=== PATIENT | female | born 1970 | race Hispanic/Latino ===

== ENCOUNTER 2025-04-04 20:19 | Inpatient (IN) | payer BC ==
[~2025-04-04] VITALS: Ht 149.9 cm; Wt 48.6 kg
[2025-04-04 20:41] LABS: IMMATURE GRANULOCYTE ABSOLUTE 0.08 K/uL (0-1); NUCLEATED RED BLOOD CELLS 0.0 % (0.0-0.19); PLATELET COUNT (AUTO) 369 K/uL (130-400); RED BLOOD CELL COUNT(AUTO) 4.22 MIL/uL (4.00-5.50); RED CELL DISTRIBUTION WIDTH 12.3 % (11.0-15.5); WHITE BLOOD COUNT (AUTO) 21.5 K/uL (4.8-10.8)
[2025-04-04] MEDS: 0.9%NACL 1000ML 1,000 ML IV SCH (20:43)
[2025-04-04] MEDS: DICYCLOMINE HCL 20 MG TAB PO ONE (20:43)
--- NOTE | 2025-04-04 20:50 | ERN ---
General Chief Complaint: Abdominal Pain Stated Complaint: ABDOMINAL PAIN Time Seen by MD: 20:28 History of Present Illness Initial Comments 54-year-old female here for evaluation of abdominal pain, nausea vomiting. States that she is originally from [place] however is here for business. States that she was in her normal state of health two days ago however developed nausea and vomiting yesterday. And progress to worsening abdominal pain today that she decided to come the emergency room for evaluation. Denies any dysuria. Allergies: Coded Allergies: prednisone (Unverified Allergy, Unknown, 04/04/25) Past Medical History Past Medical History: Diabetes-Type II Past Surgical History: None Gastrointestinal/Abdominal: (+) nausea, (+) vomiting, (+) abdominal pain Physical Exam General Appearance: (+) apparent distress (Secondary to abdominal pain. Mild) Orientation: (+) alert, (+) oriented x 3 Head/Face Trauma: No Eye: bilateral eye normal inspection, bilateral eye PERRL, bilateral eye EOMI Ear, Nose, Throat: (+) hearing grossly normal, (+) normal ENT inspection, (+) moist mucous membraine Neck: (+) normal inspection Respiratory: (+) chest non-tender, (+) lungs clear Heart: (+) regular; (-) murmur Gastrointestinal: (+) soft, (+) tender (The around) Results Laboratory and Microbiology Lab and Micro Result Laboratory Tests Test 04/04/25 20:35 White Blood Count 21.5 K/uL (4.8-10.8) H Red Blood Count 4.22 MIL/uL (4.00-5.50) Hemoglobin 13.3 g/dL (12.0-16.0) Hematocrit 38.3 % (36-48) Mean Corpuscular Volume 90.8 fL (79-99) Mean Corpuscular Hemoglobin 31.5 pg (27.0-33.0) Mean Corpuscular Hemoglobin Concent 34.7 g/dL (32.0-36.0) Red Cell Distribution Width 12.3 % (11.0-15.5) Platelet Count 369 K/uL (130-400) Mean Platelet Volume 9.3 fL (7.5-10.5) Immature Granulocyte % (Auto) 0.4 % (0-1) Neutrophils (%) (Auto) 85.4 % (40.0-77.0) H Lymphocytes (%) (Auto) 9.1 % (21.0-51.0) L Monocytes (%) (Auto) 4.5 % (3.0-13.0) Eosinophils (%) (Auto) 0.2 % (0.0-8.0) Basophils (%) (Auto) 0.4 % (0.0-5.0) Neutrophils # (Auto) 18.4 K/uL (1.8-7.7) H Lymphocytes # (Auto) 2.0 K/uL (1.0-4.8) Monocytes # (Auto) 1.0 K/uL (0.1-1.0) Eosinophils # (Auto) 0.04 K/uL (0.00-0.70) Basophils # (Auto) 0.08 K/uL (0.00-0.20) Absolute Immature Granulocyte (auto 0.08 K/uL (0-1) Nucleated Red Blood Cells 0.0 % (0.0-0.19) White Cell Morphology Comment See comments Sodium Level 135 mmol/L (136-145) L Potassium Level 3.6 mmol/L (3.5-5.1) Chloride Level 101 mmol/L (101-111) Carbon Dioxide Level 22 mmol/L (21-32) Blood Urea Nitrogen 13 mg/dL (7-18) Creatinine 0.8 mg/dL (0.5-1.0) Glomerular Filtration Rate Calc 89 mL/min (>90) Random Glucose 171 mg/dL (70-105) H Total Calcium 8.7 mg/dL (8.5-10.1) Total Bilirubin 0.6 mg/dL (0.2-1.0) Direct Bilirubin 0.1 mg/dL (0.0-0.3) Aspartate Amino Transf (AST/SGOT) 18 U/L (10-37) Alanine Aminotransferase (ALT/SGPT) 22 U/L (12-78) Alkaline Phosphatase 66 U/L (50-136) Total Protein 7.2 g/dL (6.0-8.3) Albumin 3.8 g/dL (3.5-5.0) Lipase 32 U/L (16-77) Serum Test, Qualitative NEGATIVE (NEGATIVE) EKG/XRAY/US/CT/MRI CT Scan Comment EXAM: CT Abdomen and Pelvis with IV contrast CLINICAL HISTORY: The pain. Right lower and left lower quadrant pain. TECHNIQUE: Axial computed tomography images of the abdomen and pelvis with intravenous contrast. CONTRAST: with intravenous contrast, 100 ml Omnipaque 350 COMPARISON: None provided. FINDINGS: LUNG BASES: The lung bases appear clear. No pleural effusions are seen. LIVER: 0.7 cm and 0.5 cm hypodense lesions in segment IV, likely cysts. GALLBLADDER AND BILE DUCTS: The gallbladder appears within normal limits. No radioopaque gallstones are seen. No biliary ductal dilatation is evident. PANCREAS: Unremarkable. SPLEEN: Unremarkable. ADRENAL GLANDS: Unremarkable. KIDNEYS, URETERS, AND BLADDER: 0.5 cm cyst in the upper polar region of the left kidney. The kidneys appear within normal limits. There is no hydronephrosis or hydroureter. No urinary calculi are seen. STOMACH AND BOWEL: Unremarkable appearance of the stomach and bowel. No evidence of bowel obstruction. No evidence suggesting enteritis or colitis. APPENDIX: The appendix is distended with a maximum diameter measuring up to 1.4 cm. Mild appendiceal wall thickening with moderate periappendiceal inflammatory changes. No collection. No perforation. PERITONEUM: No free fluid. No free air. LYMPH NODES: No lymphadenopathy is evident. REPRODUCTIVE: The uterus is surgically absent. No adnexal lesion. VASCULATURE: Atherosclerotic wall calcifications in the abdominal aorta. No evidence of abdominal aortic aneurysm. BONES: No aggressive appearing osseous lesion. No acute osseous pathology evident. IMPRESSION: Acute appendicitis. No appendicolith, perforation or collection. MDM 54-year-old female with acute abdomen. CT scan shows appendicitis. We will start on IV antibiotics, fluids and admit to hospitalist. General surgeon made aware. We will admit to hospitalist ED Course Orders Procedure Category Date Status Time Vital Signs Per CPOE 04/04/25 Transmitted Routine 20:25 Saline Lock Iv CPOE 04/04/25 Transmitted 20:25 Cbc With Differential LAB 04/04/25 Complete 20:25 Lipase LAB 04/04/25 Complete 20: Urinalysis Profile LAB 04/04/25 Logged 20:25 Basic Metabolic Panel LAB 04/04/25 Complete 20:25 Dicyclomine Hcl PHA 04/04/25 Complete (Bentyl 20mg Tab) 21:00 0.9%Nacl 1000ml (Ns PHA 04/04/25 In Process 1000ml) 21:00 Ondansetron 4mg Inj PHA 04/04/25 Complete (Zofran 4mg Inj) 21:00 Testing, LAB 04/04/25 Complete Serum Hcg 20:39 Hepatic Function Panel LAB 04/04/25 Complete 20:35 Ct Abdomen/Pelvis CT 04/04/25 Resulted W/Contrast 21:04 Morphine 2mg Syg PHA 04/04/25 Complete (Morphine 2mg Syg) 21:30 Iohexol (Omnipaque) PHA 04/04/25 Complete 21:15 Zosyn 3.375gm+Ns 50ml PHA 04/04/25 Verified (Zosyn 3.375gm+Ns 22:30 Current Medications Medications (Trade) Dose Ordered Sig/Ann Marie Route PRN Reason Start Time Stop Time Status Last Admin Dose Admin Dicyclomine HCl (Bentyl 20mg Tab) 20 mg ONCE ONCE PO 04/04/25 21:00 04/04/25 21:01 DC 04/04/25 20:43 Iohexol (Omnipaque) 75 ml STK-MED ONCE IV 04/04/25 21:15 04/04/25 21:15 DC Morphine Sulfate (morPHINE 2MG SYG) 2 mg ONCE ONCE IVP 04/04/25 21:30 04/04/25 21:59 DC Ondansetron HCl (zoFRAN 4MG INJ) 4 mg ONCE ONCE IVP 04/04/25 21:00 04/04/25 21:01 DC 04/04/25 20:43 Sodium Chloride 1,000 ml @ 0 mls/hr Q0M IV 04/04/25 21:00 05/04/25 20:59 04/04/25 20:43 Vital Signs Date Time Temp Pulse Resp B/P (MAP) Pulse Ox O2 Delivery O2 Flow Rate FiO2 04/04/25 20:28 97.9 79 20 160/97 100 Room Air* 0 21 04/04/25 20:20 98.1 84 16 151/81 100 Room Air 0 DX & DISP Disposition: Inpatient Decision to Admit Date: Apr 04, 2025 Decision to Admit Time: 22:07 Departure Impression: Primary Impression: Acute appendicitis Condition: Stable CHAIM SERNA MD Apr 04, 2025 20:50
[2025-04-04 20:57] LABS: CREATININE 0.8 mg/dL (0.5-1.0); GLOMERULAR FILTR. RATE CALC 89.0 mL/min (>90); GLUCOSE,RANDOM 171.0 mg/dL (70-105); SODIUM SERUM 135.0 mmol/L (136-145); UREA NITROGEN, BLOOD 13.0 mg/dL (7-18)
[2025-04-04 21:00] LABS: ASPARTATE AMINOTRANSFERASE 18.0 U/L (10-37); TOTAL PROTEIN, SERUM 7.2 g/dL (6.0-8.3)
[2025-04-04] MEDS ORDERED: IOHEXOL-350 75 ML VIAL IV ONE (21:15)
--- NOTE | 2025-04-04 21:56 | HMCIMG ---
EXAM: CT Abdomen and Pelvis with IV contrast CLINICAL HISTORY: The pain. Right lower and left lower quadrant pain. TECHNIQUE: Axial computed tomography images of the abdomen and pelvis with intravenous contrast. CONTRAST: with intravenous contrast, 100 ml Omnipaque 350 COMPARISON: None provided. FINDINGS: LUNG BASES: The lung bases appear clear. No pleural effusions are seen. LIVER: 0.7 cm and 0.5 cm hypodense lesions in segment IV, likely cysts. GALLBLADDER AND BILE DUCTS: The gallbladder appears within normal limits. No radioopaque gallstones are seen. No biliary ductal dilatation is evident. PANCREAS: Unremarkable. SPLEEN: Unremarkable. ADRENAL GLANDS: Unremarkable. KIDNEYS, URETERS, AND BLADDER: 0.5 cm cyst in the upper polar region of the left kidney. The kidneys appear within normal limits. There is no hydronephrosis or hydroureter. No urinary calculi are seen. STOMACH AND BOWEL: Unremarkable appearance of the stomach and bowel. No evidence of bowel obstruction. No evidence suggesting enteritis or colitis. APPENDIX: The appendix is distended with a maximum diameter measuring up to 1.4 cm. Mild appendiceal wall thickening with moderate periappendiceal inflammatory changes. No collection. No perforation. PERITONEUM: No free fluid. No free air. LYMPH NODES: No lymphadenopathy is evident. REPRODUCTIVE: The uterus is surgically absent. No adnexal lesion. VASCULATURE: Atherosclerotic wall calcifications in the abdominal aorta. No evidence of abdominal aortic aneurysm. BONES: No aggressive appearing osseous lesion. No acute osseous pathology evident. IMPRESSION: Acute appendicitis. No appendicolith, perforation or collection. /[place]
--- NOTE | 2025-04-04 22:32 | HP ---
[facility] HISTORY AND PHYSICAL Date of Service: Apr 04, 2025 Time of Service: 22:31 PCP: Self-referral HISTORY OF PRESENT ILLNESS: This is a 54-year-old female from [place] with past medical history of diabetes who presents to the ED for complaints of abdominal pain, nausea and vomiting.Patient states she started having nausea for the past 2 days and today she vomited 2 x and developed diffuse abdominal pain which has localized to right lower quadrant so she decided to come to be evaluated.Patient states she has similar problem 2 years ago and was told it was resolved. Seen and examined patient in the ED ,awake,alert and coherent,appears uncomfortable c/o abdominal pain 5/10 pain level.Patient denies fever,chills,dysuria,chest pain,palpitation and shortness of breath. Latest vital signs temperature 99, heart rate 76, blood pressure 126/90 saturation 100% on room air. Labs: WBC 21 with negative left shift of neutrophils 85. Sodium 135, glucose 171 serum test negative. Urinalysis is unremarkable. CT abdomen and pelvis with contrast result revealed acute appendicitis. No appendicolith perforation or collection. While in the ER patient received Bentyl 20 mg p.o., 1 L NS bolus, Zofran 4 mg IV, morphine 2 mg IV and Zosyn IV. General surgeon monogram technician was consulted per ER MD's report we will admit patient for further medical management. REVIEW OF SYSTEMS CONSTITUTIONAL: Denies fevers, chills, or night sweats. No unintentional weight loss reported. NEUROLOGICAL: Denies headache, amaurosis fugax, motor weakness, sensory deficit, vertigo/spinning sensation, gait abnormalities, or tremors. ENT: No hearing loss, otalgia, otorrhea, rhinitis, rhinorrhea, hoarseness, or sore throat. CARDIOVASCULAR: Denies any exertional angina, dyspnea on exertion, orthopnea, paroxysmal nocturnal dyspnea, palpitations, life-threatening arrhythmias, claudication. PULMONARY: Denies any shortness of breath, cough, phlegm/sputum, hemoptysis, pleuritic chest pain. SLEEP: Denies morning headaches, daytime somnolence or napping. Denies difficulty falling asleep, staying asleep, waking from sleep. Denies knowledge of snoring. GASTROINTESTINAL: Right lower quadrant abdominal pain, nausea and vomiting Denies any type of dysphagia to either liquids or solids. Denies pyrosis, early satiety, diarrhea, constipation, or changes in stool consistency or caliber. Denies coffee-ground emesis, hematemesis, hematochezia, or melanotic stools. GENITOURINARY: Denies frequency, urgency, nocturia, hematuria or incontinence (Storage/Irritative symptoms.) Low urinary stream, straining to void, urinary intermittency or hesitancy, splitting of the voiding stream, terminal dribbling. ENDOCRINOLOGIC: Denies polyuria, polydipsia, polyphagia or heat/cold intolerances. HEMATOLOGIC: Denies thrombophilia/previous clots, or coagulopathy/bleeding disorders. ONCOLOGIC: Denies personal history of malignancy. DERMATOLOGIC: Denies rashes or pruritus. PSYCHIATRIC: Denies any suicidal or homicidal ideation. Denies hallucinations. PAST MEDICAL HISTORY: [ Diabetes, ] PAST SURGICAL HISTORY: [ Hysterectomy ] PAST SOCIAL HISTORY: [ Patient is from [place]. Patient denies alcohol tobacco and recreational drug use] FAMILY HISTORY: [ Noncontributory ] Coded Allergies: prednisone (Unverified Allergy, Unknown, 04/04/25) PHYSICAL EXAM GENERAL APPEARANCE: The patient is awake, alert, and oriented, in no acute cardiopulmonary distress. NEUROLOGICAL: Cranial nerves II-XII grossly intact. Motor is 5/5 in bilateral upper and lower extremities proximal to distal. No sensory deficits. HEENT: Face is symmetric. Pupils are equal and reactive. Extraocular movements are intact. NECK: Supple. No JVD. No thyromegaly. No submental, submandibular, pre- /postauricular, occipital or supraclavicular lymphadenopathy. CHEST: Normal chest expansion. No Telemetry. LUNGS: Absence of any rales, rhonchi or any wheezing. CARDIOVASCULAR: Regular. S1 and S2 normal. No appreciable rubs, murmurs or gallops. ABDOMEN: Positive rebound tenderness around right lower quadrant palpation Soft and nondistended. There is no voluntary guarding, or rigidity. : Deferred. No Kline. EXTREMITIES: Non-edematous and not cyanotic. No clubbing. Good capillary refill. SKIN: No skin breakdown. Vital Sign (Last 24 Hours) 04/04/25 20:28 Temp 97.9 Pulse 79 Resp 20 B/P (MAP) 160/97 Pulse Ox 100 O2 Delivery Room Air* O2 Flow Rate 0 FiO2 21 LABS: Laboratory: Test 04/04/25 20:35 Range/Units White Blood Count 21.5 H 4.8-10.8 K/uL Red Blood Count 4.22 4.00-5.50 MIL/uL Hemoglobin 13.3 12.0-16.0 g/dL Hematocrit 38.3 36-48 % Mean Corpuscular Volume 90.8 79-99 fL Mean Corpuscular Hemoglobin 31.5 27.0-33.0 pg Mean Corpuscular Hemoglobin Concent 34.7 32.0-36.0 g/dL Red Cell Distribution Width 12.3 11.0-15.5 % Platelet Count 369 130-400 K/uL Mean Platelet Volume 9.3 7.5-10.5 fL Immature Granulocyte % (Auto) 0.4 0-1 % Neutrophils (%) (Auto) 85.4 H 40.0-77.0 % Lymphocytes (%) (Auto) 9.1 L 21.0-51.0 % Monocytes (%) (Auto) 4.5 3.0-13.0 % Eosinophils (%) (Auto) 0.2 0.0-8.0 % Basophils (%) (Auto) 0.4 0.0-5.0 % Neutrophils # (Auto) 18.4 H 1.8-7.7 K/uL Lymphocytes # (Auto) 2.0 1.0-4.8 K/uL Monocytes # (Auto) 1.0 0.1-1.0 K/uL Eosinophils # (Auto) 0.04 0.00-0.70 K/uL Basophils # (Auto) 0.08 0.00-0.20 K/uL Absolute Immature Granulocyte (auto 0.08 0-1 K/uL Nucleated Red Blood Cells 0.0 0.0-0.19 % White Cell Morphology Comment See comments Sodium Level 135 L 136-145 mmol/L Potassium Level 3.6 3.5-5.1 mmol/L Chloride Level 101 101-111 mmol/L Carbon Dioxide Level 22 21-32 mmol/L Blood Urea Nitrogen 13 7-18 mg/dL Creatinine 0.8 0.5-1.0 mg/dL Glomerular Filtration Rate Calc 89 >90 mL/min Random Glucose 171 H 70-105 mg/dL Total Calcium 8.7 8.5-10.1 mg/dL Total Bilirubin 0.6 0.2-1.0 mg/dL Direct Bilirubin 0.1 0.0-0.3 mg/dL Aspartate Amino Transf (AST/SGOT) 18 10-37 U/L Alanine Aminotransferase (ALT/SGPT) 22 12-78 U/L Alkaline Phosphatase 66 50-136 U/L Total Protein 7.2 6.0-8.3 g/dL Albumin 3.8 3.5-5.0 g/dL Lipase 32 16-77 U/L Serum Test, Qualitative NEGATIVE NEGATIVE Current Medications Medications (Trade) Dose Ordered Sig/Ann Marie Route PRN Reason Start Time Stop Time Status Last Admin Dose Admin Sodium Chloride 1,000 ml @ 0 mls/hr Q0M IV 04/04/25 21:00 05/04/25 20:59 04/04/25 20:43 75 MLS/HR DIAGNOSTICS / RADIOLOGY: [ ] ASSESSMENT: Acute appendicitis POA Acute leukocytosis POA Hyponatremia POA Uncontrolled diabetes POA PLAN: We will admit patient in medical surgical We will keep nothing by mouth diet We will start NS @ 100 ml / hr x2 bags and re evaluate We will continue Zosyn IV Q 8 hours for empiric coverage We will start on famotidine 20 mg IV daily for GI prophylaxis We will replace electrolytes as needed per protocol We will start on insulin sliding scale AC & HS with hypoglycemia protocol We will add prn medication for fever,pain,cough , nausea and vomiting We will reconcile home meds once medlist available General surgery consulted per ER pending evaluation We will request labs in am Further orders to follow depending on above results Case discussed with attending physician and came up with above treatment and plan of care. ADVANCED CARE PLANNING 1. Which of the following were discussed? Hospice Care - No Therapeutic options - Yes Advance Directives - No Other discussions - 2. Discussed with who? Patient 3. Voluntary nature of this service was explained to the patient? Yes 4. Amount of time spent - ___22 min____ 5. Reviewed by Physician? (if this service was performed by NPP) Yes Patient seen and examined by me. Agree with note by CUT OFF SAW OPERATOR SEE ADDITIONAL ORDERS PER CHART DISCUSSED WITH NURSING STAFF SARY LYNP Apr 04, 2025 22:31
[2025-04-04] MEDS: ZOSYN 3.375GM +NS 50ML IV ONE (22:35)
[2025-04-04 22:42] LABS: APPEARANCE,URINE CLEAR (CLEAR); GLUCOSE, URINE (UA) 30 mg/dL (NEGATIVE); LEUKOCYTE ESTERASE ,URINE NEGATIVE Leu/uL (NEGATIVE); NITRATE,URINE NEGATIVE (NEGATIVE); OCCULT BLOOD,URINE NEGATIVE (NEGATIVE)
[2025-04-04 22:43] LABS: ADD UA MICROSCOPIC YES
[2025-04-05] VITALS (24 sets, daily range): BP systolic 103–141; BP diastolic 60–86; PULSE 55–88; RESP 12–20; TEMP 97–98; O2SAT 98
[2025-04-05] MEDS ORDERED: DEXTROSE 50%-WATER 50 ML DISP.SYRIN IV PRN
[2025-04-05] MEDS ORDERED: GLUCAGON 1MG KIT 1 MG ML IM PRN
[2025-04-05] MEDS: 0.9%NACL 1000ML 1,000 ML IV SCH (03:52)
[2025-04-05] MEDS: ZOSYN 3.375GM+NS 50ML 50 ML IV SCH (05:43)
[2025-04-05 06:38] LABS: IMMATURE GRANULOCYTE ABSOLUTE 0.03 K/uL (0-1); NUCLEATED RED BLOOD CELLS 0.0 % (0.0-0.19); PLATELET COUNT (AUTO) 321 K/uL (130-400); RED BLOOD CELL COUNT(AUTO) 3.84 MIL/uL (4.00-5.50); RED CELL DISTRIBUTION WIDTH 12.6 % (11.0-15.5); WHITE BLOOD COUNT (AUTO) 11.8 K/uL (4.8-10.8)
[2025-04-05 06:53] LABS: ASPARTATE AMINOTRANSFERASE 15.0 U/L (10-37); CREATININE 0.7 mg/dL (0.5-1.0); GLOMERULAR FILTR. RATE CALC 104.0 mL/min (>90); GLUCOSE,RANDOM 83.0 mg/dL (70-105); SODIUM SERUM 140.0 mmol/L (136-145); TOTAL PROTEIN, SERUM 6.2 g/dL (6.0-8.3); UREA NITROGEN, BLOOD 8.0 mg/dL (7-18)
[2025-04-05 06:57] LABS: INR 1.08 (0.85-1.15)
[2025-04-05] MEDS: FAMOTIDINE 20MG VIAL IV SCH (09:10)
--- NOTE | 2025-04-05 11:29 | NUR ---
Report given to STEVE Bush. Pt. transferred to Room 118 via stretcher. V/S T 97.3 HR 64 Resp 18 B/P 104/70mmHg O2 Sat 100% on room air. No acute distress noted.
--- NOTE | 2025-04-05 11:30 | NUR ---
ARRIVAL ON UNIT PATIENT ARRIVED TO THE FIRST FLOOR MEDICAL SURGICAL UNIT FROM THE ER. PATIENT AMBULATED FROM ER BED TO MED/SURG BED. THE PATIENT IS IN NO APPARENT DISTRESS AT THIS TIME. THE PATIENT DENIES ANY PAIN AT THIS TIME. THE PATIENT WAS ORIENTED TO THE ROOM AND INSTRUCTED TO CALL IF SHE NEEDED ANY ASSISTANCE AT ANY TIME.
--- NOTE | 2025-04-05 12:19 | NUR ---
DCP:HOME Pt lives in [place], [place] with a roommate. Pt states that she travels a lot for work. Pt denies having any DME, home health, or provider services. Pt states that she is able to complete ADLs independently. PCP is Dr. Robel Mcneal and uses [facility] for any RX needs. At [place] pt states that a [facility] patient intake representative Liana Chua [phone] will potentially help her with a ride and a stay at a local hotel.
--- NOTE | 2025-04-05 15:23 | PN ---
[facility] PROGRESS NOTE Date of Service: Apr 05, 2025 Time of Service: 15:04 HISTORY OF PRESENT ILLNESS: This is a 54-year-old female from [place] with past medical history of diabetes who presents to the ED for complaints of abdominal pain, nausea and vomiting.Patient states she started having nausea for the past 2 days and today she vomited 2 x and developed diffuse abdominal pain which has localized to right lower quadrant so she decided to come to be evaluated.Patient states she has similar problem 2 years ago and was told it was resolved. Seen and examined patient in the ED ,awake,alert and coherent,appears uncomfortable c/o abdominal pain 5/10 pain level.Patient denies fever,chills,dysuria,chest pain,palpitation and shortness of breath. Latest vital signs temperature 99, heart rate 76, blood pressure 126/90 saturation 100% on room air. Labs: WBC 21 with negative left shift of neutrophils 85. Sodium 135, glucose 171 serum test negative. Urinalysis is unremarkable. CT abdomen and pelvis with contrast result revealed acute appendicitis. No appendicolith perforation or collection. While in the ER patient received Bentyl 20 mg p.o., 1 L NS bolus, Zofran 4 mg IV, morphine 2 mg IV and Zosyn IV. General surgeon traffic operations engineer was consulted per ER MD's report we will admit patient for further medical management. SUBJECTIVE: 04/05/25: Patient was seen and evaluated inn ED18. Patient was alert, awake, oriented. patient reports of pain in the right lower quadrant of abdomen. Patient denies nausea, vomiting today but had prior episodes nausea and vomiting yesterday. Patient mentions she had prior episode of abdominal pain but this episode had the most excruciating pain. Patient denies any fever, chills. patient denies any urinary frequency, burning sensation during urination. patient denies any change in bowel or bladder movement. REVIEW OF SYSTEMS CONSTITUTIONAL: Denies fevers, chills, or night sweats. No unintentional weight loss reported. NEUROLOGICAL: Denies headache, amaurosis fugax, motor weakness, sensory deficit, vertigo/spinning sensation, gait abnormalities, or tremors. ENT: No hearing loss, otalgia, otorrhea, rhinitis, rhinorrhea, hoarseness, or sore throat. CARDIOVASCULAR: Denies any exertional angina, dyspnea on exertion, orthopnea, paroxysmal nocturnal dyspnea, palpitations, life-threatening arrhythmias, claudication. PULMONARY: Denies any shortness of breath, cough, phlegm/sputum, hemoptysis, pleuritic chest pain. SLEEP: Denies morning headaches, daytime somnolence or napping. Denies difficulty falling asleep, staying asleep, waking from sleep. Denies knowledge of snoring. GASTROINTESTINAL: Right lower quadrant abdominal pain, Denies nausea and vomiti ng Denies any type of dysphagia to either liquids or solids. Denies pyrosis, early satiety, diarrhea, constipation, or changes in stool consistency or caliber. Denies coffee-ground emesis, hematemesis, hematochezia, or melanotic stools. GENITOURINARY: Denies frequency, urgency, nocturia, hematuria or incontinence (Storage/Irritative symptoms.) Low urinary stream, straining to void, urinary intermittency or hesitancy, splitting of the voiding stream, terminal dribbling. ENDOCRINOLOGIC: Denies polyuria, polydipsia, polyphagia or heat/cold intoleranc es. HEMATOLOGIC: Denies thrombophilia/previous clots, or coagulopathy/bleeding disorders. ONCOLOGIC: Denies personal history of malignancy. DERMATOLOGIC: Denies rashes or pruritus. PSYCHIATRIC: Denies any suicidal or homicidal ideation. Denies hallucinations. PHYSICAL EXAM GENERAL APPEARANCE: The patient is awake, alert, and oriented, in no acute cardiopulmonary distress. NEUROLOGICAL: Cranial nerves II-XII grossly intact. Motor is 5/5 in bilateral upper and lower extremities proximal to distal. No sensory deficits. HEENT: Face is symmetric. Pupils are equal and reactive. Extraocular movements are intact. NECK: Supple. No JVD. No thyromegaly. No submental, submandibular, pre- /postauricular, occipital or supraclavicular lymphadenopathy. CHEST: Normal chest expansion. No Telemetry. LUNGS: Absence of any rales, rhonchi or any wheezing. CARDIOVASCULAR: Regular. S1 and S2 normal. No appreciable rubs, murmurs or gallops. ABDOMEN: Tenderness around right lower quadrant palpation with positive Elbridge sign, Psoas sign. Soft and nondistended. There is no voluntary guarding, or rigidity. : Deferred. No Kline. EXTREMITIES: Non-edematous and not cyanotic. No clubbing. Good capillary refill. SKIN: No skin breakdown. Vital Signs (last 8hr) Date Time Temp Pulse Resp B/P (MAP) Pulse Ox O2 Delivery O2 Flow Rate FiO2 04/05/25 12:00 97.3 62 18 120/61 100 Room Air 21 04/05/25 10:48 98 Room Air* 0 21 04/05/25 09:11 97.2 65 14 103/68 98 Room Air 0.0 LABS: Laboratory: Test 04/05/25 13:03 04/05/25 06:04 04/04/25 22:16 04/04/25 20:35 Range/Units Whole Blood Glucose 78 70-110 MG/DL White Blood Count 11.8 #H 4.8-10.8 K/uL Red Blood Count 3.84 L 4.00-5.50 MIL/uL Hemoglobin 12.0 12.0-16.0 g/dL Hematocrit 35.7 L 36-48 % Mean Corpuscular Volume 93.0 79-99 fL Mean Corpuscular Hemoglobin 31.3 27.0-33.0 pg Mean Corpuscular Hemoglobin Concent 33.6 32.0-36.0 g/dL Red Cell Distribution Width 12.6 11.0-15.5 % Platelet Count 321 130-400 K/uL Mean Platelet Volume 9.5 7.5-10.5 fL Immature Granulocyte % (Auto) 0.3 0-1 % Neutrophils (%) (Auto) 59.1 40.0-77.0 % Lymphocytes (%) (Auto) 32.5 21.0-51.0 % Monocytes (%) (Auto) 6.8 3.0-13.0 % Eosinophils (%) (Auto) 0.8 0.0-8.0 % Basophils (%) (Auto) 0.5 0.0-5.0 % Neutrophils # (Auto) 7.0 1.8-7.7 K/uL Lymphocytes # (Auto) 3.8 1.0-4.8 K/uL Monocytes # (Auto) 0.8 0.1-1.0 K/uL Eosinophils # (Auto) 0.09 0.00-0.70 K/uL Basophils # (Auto) 0.06 0.00-0.20 K/uL Absolute Immature Granulocyte (auto 0.03 0-1 K/uL Nucleated Red Blood Cells 0.0 0.0-0.19 % Prothrombin Time 11.4 9.6-11.6 SEC Prothromb Time International Ratio 1.08 0.85-1.15 Activated Partial Thromboplast Time 27.5 26.3-35.5 SEC Sodium Level 140 136-145 mmol/L Potassium Level 3.5 3.5-5.1 mmol/L Chloride Level 106 101-111 mmol/L Carbon Dioxide Level 28 21-32 mmol/L Blood Urea Nitrogen 8 7-18 mg/dL Creatinine 0.7 0.5-1.0 mg/dL Glomerular Filtration Rate Calc 104 >90 mL/min Random Glucose 83 # 70-105 mg/dL Hemoglobin A1c 6.2 H 4.0-6.0 % Estimated Average Glucose (eAG) 131 H 70-126 mg/dL Total Calcium 7.8 L 8.5-10.1 mg/dL Magnesium Level 1.90 1.80-2.40 mg/dL Total Bilirubin 0.8 # 0.2-1.0 mg/dL Aspartate Amino Transf (AST/SGOT) 15 10-37 U/L Alanine Aminotransferase (ALT/SGPT) 18 12-78 U/L Alkaline Phosphatase 55 50-136 U/L Total Protein 6.2 6.0-8.3 g/dL Albumin 3.1 L 3.5-5.0 g/dL Urine Color COLORLESS YELLOW Urine Appearance CLEAR CLEAR Urine pH 6.0 5.0-8.0 Urine Specific [place] 1.019 1.001-1.031 Urine Protein NEGATIVE NEGATIVE mg/dL Urine Glucose (UA) 30 H NEGATIVE mg/dL Urine Ketones NEGATIVE NEGATIVE mg/dL Urine Occult Blood NEGATIVE NEGATIVE Urine Nitrate NEGATIVE NEGATIVE Urine Bilirubin NEGATIVE NEGATIVE mg/dL Urine Urobilinogen 0.2 0.2-1.0 mg/dL Urine Leukocyte Esterase NEGATIVE NEGATIVE Maru/uL Urine RBC 0-1 0-1 /HPF Urine WBC 0-1 0-1 /HPF Urine Bacteria None None Seen /HPF White Cell Morphology Comment See comments Direct Bilirubin 0.1 0.0-0.3 mg/dL Lipase 32 16-77 U/L Serum Test, Qualitative NEGATIVE NEGATIVE Current Medications Medications (Trade) Dose Ordered Sig/Ann Marie Route PRN Reason Start Time Stop Time Status Last Admin Dose Admin Dextrose (D50w) 50 ml AD PRN IV HYPOGLYCEMIA PROTOCOL 04/05/25 00:00 05/05/25 00:00 Famotidine (Pepcid 20mg Vial) 20 mg DAILY IV 04/05/25 09:00 05/05/25 08:59 04/05/25 09:10 20 MG Glucagon (Glucagon 1mg Kit) 1 mg AD PRN IM HYPOGLYCEMIA PROTOCOL 04/05/25 00:00 05/05/25 00:00 Insulin Human Regular (humuLIN R 100 UNIT/ML 3ML) INSULIN SLIDING SCAL... ACHS SQ 04/05/25 07:30 05/05/25 07:29 Morphine Sulfate (morPHINE 2MG SYG) 2 mg Q4H PRN IV MODERATE PAIN (4-6) 04/05/25 00:00 04/12/25 00:00 04/05/25 12:51 2 MG Ondansetron HCl (zoFRAN 4MG INJ) 4 mg Q6H PRN IV NAUSEA/VOMITING 04/05/25 00:00 05/05/25 00:00 Piperacillin Sod/ Tazobactam Sod 50 ml @ 12.5 mls/hr Q8H IV 04/05/25 05:00 04/15/25 04:59 04/05/25 12:46 12.5 MLS/HR Sodium Chloride 1,000 ml @ 0 mls/hr Q0M IV 04/04/25 21:00 05/04/25 20:59 04/04/25 20:43 75 MLS/HR Sodium Chloride 1,000 ml @ 100 mls/hr Q10H IV 04/05/25 00:00 05/05/25 00:00 04/05/25 09:10 100 MLS/HR DIAGNOSTICS / RADIOLOGY: [place] [address] IMAGING REPORT Addendum PATIENT: ARIS MUHAMMAD MR#: [id number] : 1970 SEX: F AGE: 54 LOCATION: [facility] ORDER 04 STATUS: REG ER REPORT#: [id number] SERVICE 03 REASON: acute abd? 21k wbc. rlq llq tenderness ORDERING PHYSICIAN: LUCAS SERNA MD PROCEDURE: ABD PEL W - CT ABDOMEN/PELVIS W/CONTRAST ADDENDUM REPORT ADDENDUM: Results were shared by telephone at 11:02 PM EST on 04-04-25 and acknowledged by Lucas Burgos. /[place] EXAM: CT Abdomen and Pelvis with IV contrast CLINICAL HISTORY: The pain. Right lower and left lower quadrant pain. TECHNIQUE: Axial computed tomography images of the abdomen and pelvis with intravenous contrast. CONTRAST: with intravenous contrast, 100 ml Omnipaque 350 COMPARISON: None provided. FINDINGS: LUNG BASES: The lung bases appear clear. No pleural effusions are seen. LIVER: 0.7 cm and 0.5 cm hypodense lesions in segment IV, likely cysts. GALLBLADDER AND BILE DUCTS: The gallbladder appears within normal limits. No radioopaque gallstones are seen. No biliary ductal dilatation is evident. PANCREAS: Unremarkable. SPLEEN: Unremarkable. ADRENAL GLANDS: Unremarkable. KIDNEYS, URETERS, AND BLADDER: 0.5 cm cyst in the upper polar region of the left kidney. The kidneys appear within normal limits. There is no hydronephrosis or hydroureter. No urinary calculi are seen. STOMACH AND BOWEL: Unremarkable appearance of the stomach and bowel. No evidence of bowel obstruction. No evidence suggesting enteritis or colitis. APPENDIX: The appendix is distended with a maximum diameter measuring up to 1.4 cm. Mild appendiceal wall thickening with moderate periappendiceal inflammatory changes. No collection. No perforation. PERITONEUM: No free fluid. No free air. LYMPH NODES: No lymphadenopathy is evident. REPRODUCTIVE: The uterus is surgically absent. No adnexal lesion. VASCULATURE: Atherosclerotic wall calcifications in the abdominal aorta. No evidence of abdominal aortic aneurysm. BONES: No aggressive appearing osseous lesion. No acute osseous pathology evident. IMPRESSION: Acute appendicitis. No appendicolith, perforation or collection. /[place] DICTATED BY: KYLE JAIME MD DATE: 04/04/252303 ELECTRONICALLY SIGNED BY: DATE: EXAM: CT Abdomen and Pelvis with IV contrast CLINICAL HISTORY: The pain. Right lower and left lower quadrant pain. TECHNIQUE: Axial computed tomography images of the abdomen and pelvis with intravenous contrast. CONTRAST: with intravenous contrast, 100 ml Omnipaque 350 COMPARISON: None provided. FINDINGS: LUNG BASES: The lung bases appear clear. No pleural effusions are seen. LIVER: 0.7 cm and 0.5 cm hypodense lesions in segment IV, likely cysts. GALLBLADDER AND BILE DUCTS: The gallbladder appears within normal limits. No radioopaque gallstones are seen. No biliary ductal dilatation is evident. PANCREAS: Unremarkable. SPLEEN: Unremarkable. ADRENAL GLANDS: Unremarkable. KIDNEYS, URETERS, AND BLADDER: 0.5 cm cyst in the upper polar region of the left kidney. The kidneys appear within normal limits. There is no hydronephrosis or hydroureter. No urinary calculi are seen. STOMACH AND BOWEL: Unremarkable appearance of the stomach and bowel. No evidence of bowel obstruction. No evidence suggesting enteritis or colitis. APPENDIX: The appendix is distended with a maximum diameter measuring up to 1.4 cm. Mild appendiceal wall thickening with moderate periappendiceal inflammatory changes. No collection. No perforation. PERITONEUM: No free fluid. No free air. LYMPH NODES: No lymphadenopathy is evident. REPRODUCTIVE: The uterus is surgically absent. No adnexal lesion. VASCULATURE: Atherosclerotic wall calcifications in the abdominal aorta. No evidence of abdominal aortic aneurysm. BONES: No aggressive appearing osseous lesion. No acute osseous pathology evident. IMPRESSION: Acute appendicitis. No appendicolith, perforation or collection. /[place] DICTATED BY: KYLE JAIME MD DATE: 04/04/252254 ELECTRONICALLY SIGNED BY: KYLE JAIME MD DATE: 04/04/252254 ASSESSMENT: Acute appendicitis POA Acute leukocytosis POA Hyponatremia POA Uncontrolled diabetes POA PLAN: Acute appendicitis POA: * On presentation vitals were - temperature 99, heart rate 76, blood pressure 126/90 saturation 100% on room air. Pertinent Labs WBC 21 with negative left shift of neutrophils 85. Sodium 135, glucose 171 serum test negative. * WBC trends- 21>11.8 * CT abdomen with contrast was ordered, results show findings of acute appendicitis with no appendicolith, perforation or collection. * blood culutre was ordered, pending results. * Patient is on NPO * Patient was started on empirical antibiotics with Zosyn (day 1) * Patient was started on Morphine 2mg for analgesia * Patient started on IV fluids with sodium chloride. * Patient started on ondansetron 4mg for nausea. * General surgery was consulted, will follow recommendations. Hyponatremia POA: * On presentation Sodium was 135. Sodium trends - 135>140 * Patient started on IV fluids with sodium chloride. * Will monitor with daily labs. Supportive measures: Started on famotidine 20 mg IV daily for GI prophylaxis DVT prophylaxis with SCD's. ATTESTATION BY PHYSICIAN I have seen and examined the patient. I reviewed the documentation, medical decision making, and treatment plan as noted by the resident physician above. I agree with the findings and plan of care. LAUREANO GALLEGO MD, SHAJI MD Apr 05, 2025 15:23
--- NOTE | 2025-04-05 17:47 | CONS ---
GENERAL SURGERY CONSULTATION NOTE DATE OF CONSULTATION: Apr 05, 2025 TIME OF CONSULTATION: 17:46 CONSULTING SERVICE: Sarah Cano MD REQUESTING PHYSICAIN: [ ] REASON FOR CONSULTATION: [ ] Acute appendicitis HISTORY OF PRESENT ILLNESS: [ ] 54-year-old lady who presented with abdominal pain -nausea & vomiting Low-grade fever PAST MEDICAL HISTORY: [ ] Diabetes PAST SURGICAL HISTORY: [ ] Hysterectomy FAMILY HISTORY: [ ] No family history of hypertension or diabetes SOCIAL HISTORY: [ ] No smoking No alcohol Current Medications Medications (Trade) Dose Ordered Sig/Ann Marie Route Start Time Stop Time Status Last Admin Dose Admin Famotidine (Pepcid 20mg Vial) 20 mg DAILY IV 04/05/25 09:00 05/05/25 08:59 04/05/25 09:10 20 MG Insulin Human Regular (humuLIN R 100 UNIT/ML 3ML) INSULIN SLIDING SCAL... ACHS SQ 04/05/25 07:30 05/05/25 07:29 Piperacillin Sod/ Tazobactam Sod 50 ml @ 12.5 mls/hr Q8H IV 04/05/25 05:00 04/15/25 04:59 04/05/25 12:46 12.5 MLS/HR Sodium Chloride 1,000 ml @ 0 mls/hr Q0M IV 04/04/25 21:00 05/04/25 20:59 04/04/25 20:43 75 MLS/HR Sodium Chloride 1,000 ml @ 100 mls/hr Q10H IV 04/05/25 00:00 05/05/25 00:00 04/05/25 09:10 100 MLS/HR Allergies: Coded Allergies: prednisone (Unverified Allergy, Unknown, 04/04/25) REVIEW OF SYSTEMS: DOT COMPLIANCE SPECIALIST: [Denies headaches or blurring of vision.] RESP: [No cough, chest pain or SOB.] CVS: [No palpitaions.] GI: [abdominal pain with nausea and vomiting, no diarrhea or constipation.] DOMINIQUE: [No dysuria or hematuria.] Musculoskeletal: [No swelling or joint pain.] BACK: [No pain or swelling.] All other systems are reviewed and essentially negative pertinent positives in HPI. PHYSICAL EXAMINATION: GENERAL: [Patient is lying comfortably in bed, not in any obvious distress.] HEAD: [Normal with no signs of head trauma.] EYES: [Not pale not jaundiced afebrile to touch.] ENT: [ Normal.] NECK: [Supple,no tenderness,no lymphadenopathy,no masses,no thyromegaly ,no bruits, no JVD.] LUNGS: [Clear breath sounds bilaterally. No wheezes, rales, or rhonchi.] HEART: [Regular rate and rhythm. Normal S1 and S2, without murmurs, rub or gallop.] VASC: [No edema. Peripheral pulses normal and equal in all extremities.] ABD: [Bowel sounds present,soft, right lower quadrant tenderness no masses, no organomegaly.] : [Normal, no suprapubic tenderness.] LYMPH: [No lymphadenopathy noted.] EXT: [ Warm soft, non tender.] SKIN: [ No rashes or lesions.] NEURO: [ Awake Alert and oriented x3.] Vital Signs (last 8hr) Date Time Temp Pulse Resp B/P (MAP) Pulse Ox O2 Delivery O2 Flow Rate FiO2 04/05/25 16:00 98.1 62 19 130/70 100 Room Air 21 04/05/25 12:00 97.3 62 18 120/61 100 Room Air 21 04/05/25 10:48 98 Room Air* 0 21 LABORATORY: [ ] Hematology Labs: Test 04/05/25 06:04 04/04/25 20:35 Range/Units White Blood Count 11.8 #H 4.8-10.8 K/uL Red Blood Count 3.84 L 4.00-5.50 MIL/uL Hemoglobin 12.0 12.0-16.0 g/dL Hematocrit 35.7 L 36-48 % Mean Corpuscular Volume 93.0 79-99 fL Mean Corpuscular Hemoglobin 31.3 27.0-33.0 pg Mean Corpuscular Hemoglobin Concent 33.6 32.0-36.0 g/dL Red Cell Distribution Width 12.6 11.0-15.5 % Platelet Count 321 130-400 K/uL Mean Platelet Volume 9.5 7.5-10.5 fL Immature Granulocyte % (Auto) 0.3 0-1 % Neutrophils (%) (Auto) 59.1 40.0-77.0 % Lymphocytes (%) (Auto) 32.5 21.0-51.0 % Monocytes (%) (Auto) 6.8 3.0-13.0 % Eosinophils (%) (Auto) 0.8 0.0-8.0 % Basophils (%) (Auto) 0.5 0.0-5.0 % Neutrophils # (Auto) 7.0 1.8-7.7 K/uL Lymphocytes # (Auto) 3.8 1.0-4.8 K/uL Monocytes # (Auto) 0.8 0.1-1.0 K/uL Eosinophils # (Auto) 0.09 0.00-0.70 K/uL Basophils # (Auto) 0.06 0.00-0.20 K/uL Absolute Immature Granulocyte (auto 0.03 0-1 K/uL Nucleated Red Blood Cells 0.0 0.0-0.19 % White Cell Morphology Comment See comments Chemistry Labs: Test 04/05/25 15:51 04/05/25 06:04 04/04/25 20:35 Range/Units Whole Blood Glucose 95 70-110 MG/DL Sodium Level 140 136-145 mmol/L Potassium Level 3.5 3.5-5.1 mmol/L Chloride Level 106 101-111 mmol/L Carbon Dioxide Level 28 21-32 mmol/L Blood Urea Nitrogen 8 7-18 mg/dL Creatinine 0.7 0.5-1.0 mg/dL Glomerular Filtration Rate Calc 104 >90 mL/min Random Glucose 83 # 70-105 mg/dL Hemoglobin A1c 6.2 H 4.0-6.0 % Estimated Average Glucose (eAG) 131 H 70-126 mg/dL Total Calcium 7.8 L 8.5-10.1 mg/dL Magnesium Level 1.90 1.80-2.40 mg/dL Total Bilirubin 0.8 # 0.2-1.0 mg/dL Aspartate Amino Transf (AST/SGOT) 15 10-37 U/L Alanine Aminotransferase (ALT/SGPT) 18 12-78 U/L Alkaline Phosphatase 55 50-136 U/L Total Protein 6.2 6.0-8.3 g/dL Albumin 3.1 L 3.5-5.0 g/dL Direct Bilirubin 0.1 0.0-0.3 mg/dL Lipase 32 16-77 U/L Serum Test, Qualitative NEGATIVE NEGATIVE Coagulation Labs: Test 04/05/25 06:04 Range/Units Prothrombin Time 11.4 9.6-11.6 SEC Prothromb Time International Ratio 1.08 0.85-1.15 Activated Partial Thromboplast Time 27.5 26.3-35.5 SEC DIAGNOSTICS / RADIOLOGY: [Copy/Paste Echos/Imaging Report here] ASSESSMENT: [] Acute appendicitis PLAN: [] NPO/IVF/IV ANTIOBIOTICS Schedule for OR We talked about various treatment options including but not limited to surgery. We talked about risks and benefits of surgery, patient verbalized understanding has agreed to proceed [ ]. We will schedule [ ]. Laparoscopic Appendectomy possible open SARAH CANO MD Apr 05, 2025 17:47
[2025-04-05] MEDS ORDERED: LIDOCAINE PF 100MG/5ML (2%) SYRINGE 5ML ONE (18:47)
[2025-04-05] MEDS ORDERED: MIDAZOLAM HCL 1 MG/ML 2ML VIAL ONE (18:48)
[2025-04-05] MEDS ORDERED: NEOSTIGMINE METHYLSULFATE 1MG/ML IV ONE (20:03)
[2025-04-05] MEDS ORDERED: GLYCOPYRROLATE 0.2 MG/ML 5 ML VIAL ONE (20:03)
--- NOTE | 2025-04-05 20:13 | OP ---
OPERATIVE NOTE: DATE OF SERVICE: 04/05/2025 PREOPERATIVE DIAGNOSIS: Acute appendicitis. POSTOPERATIVE DIAGNOSIS: Acute appendicitis. PROCEDURE PERFORMED: Laparoscopic appendectomy. SURGEON: Sarah Cano MD ANESTHESIA: General. ESTIMATED BLOOD LOSS: Minimal. FINDINGS: Acutely inflamed appendix. SPECIMEN REMOVED: Appendix. COMPLICATIONS: None. DESCRIPTION OF PROCEDURE: The patient was brought into the Operating Room. After proper identification, the patient was placed on the operating table in the supine position. General anesthesia was then administered and the patient was endotracheally intubated. Attention was then focussed in the area of the abdomen. The same was prepped and draped in the usual sterile fashion. An appropriate time-out was then carried out at this point. Then, I proceeded by making a supraumbilical incision. The incision was carried through skin and subcutaneous tissue till the fascia was identified. Fascia was then carefully incised. Stay stitches were placed on either side of the fascia and the Kiah port was then introduced. The CO2 was then insufflated into the abdomen and the laparoscope was then introduced. Inspection of the abdomen showed evidence of right lower quadrant inflammation and elongated inflamed appendix. So, at this point, I proceeded by placing 2 additional ports, one in the suprapubic region and one in the left lower quadrant. The patient was then placed in Trendelenburg position and rotated to his left. The appendix was then grasped and the attachment of the appendix to the lateral wall was then taken down using the Harmonic scalpel. Once this was done, the mesoappendix was then opened and the appendiceal vessels were then taken using the vascular load of the Endo NATE. The appendix itself was then taken from the base of the cecum using the tissue load of the Endo NATE. The specimen was then delivered using an Endopouch. Copious amount of irrigation was carried out at this point. Hemostasis was noted to be adequate. Then I proceeded by closing the wound. Ports were withdrawn under vision. CO2 was let out of the abdomen and the supraumbilical fascia was approximated together using 0 Vicryl [id number] stitches and the skin was approximated together using 4-0 Monocryl subcuticular closure. Steri-Strips and sterile dressings were then applied. Instrument and sponges count were found to be correct x2. The patient was then woken up, extubated and taken to Recovery Room in stable condition. The patient tolerated the procedure well. SARAH CANO MD Apr 05, 2025 20:13
[2025-04-05] MEDS ORDERED: PROMETHAZINE HCL 25 MG/ML 1ML AMPULE IM PRN (21:00)
[2025-04-06] VITALS (9 sets, daily range): BP systolic 12–131; BP diastolic 70–81; PULSE 66–90; RESP 18–21; TEMP 97.5–98.1; O2SAT 98
[2025-04-06 06:05] LABS: IMMATURE GRANULOCYTE ABSOLUTE 0.05 K/uL (0-1); NUCLEATED RED BLOOD CELLS 0.0 % (0.0-0.19); PLATELET COUNT (AUTO) 324 K/uL (130-400); RED BLOOD CELL COUNT(AUTO) 4.07 MIL/uL (4.00-5.50); RED CELL DISTRIBUTION WIDTH 12.1 % (11.0-15.5); WHITE BLOOD COUNT (AUTO) 10.2 K/uL (4.8-10.8)
[2025-04-06 06:20] LABS: CREATININE 0.8 mg/dL (0.5-1.0); GLOMERULAR FILTR. RATE CALC 89.0 mL/min (>90); GLUCOSE,RANDOM 178.0 mg/dL (70-105); SODIUM SERUM 138.0 mmol/L (136-145); UREA NITROGEN, BLOOD 6.0 mg/dL (7-18)
--- NOTE | 2025-04-06 14:26 | PN ---
[facility] PROGRESS NOTE Date of Service: Apr 06, 2025 Time of Service: 14:18 HISTORY OF PRESENT ILLNESS: This is a 54-year-old female from [place] with past medical history of diabetes who presents to the ED for complaints of abdominal pain, nausea and vomiting.Patient states she started having nausea for the past 2 days and today she vomited 2 x and developed diffuse abdominal pain which has localized to right lower quadrant so she decided to come to be evaluated.Patient states she has similar problem 2 years ago and was told it was resolved. Seen and examined patient in the ED ,awake,alert and coherent,appears uncomfortable c/o abdominal pain 5/10 pain level.Patient denies fever,chills,dysuria,chest pain,palpitation and shortness of breath. Latest vital signs temperature 99, heart rate 76, blood pressure 126/90 saturation 100% on room air. Labs: WBC 21 with negative left shift of neutrophils 85. Sodium 135, glucose 171 serum test negative. Urinalysis is unremarkable. CT abdomen and pelvis with contrast result revealed acute appendicitis. No appendicolith perforation or collection. While in the ER patient received Bentyl 20 mg p.o., 1 L NS bolus, Zofran 4 mg IV, morphine 2 mg IV and Zosyn IV. General surgeon home connect lpn was consulted per ER MD's report we will admit patient for further medical management. SUBJECTIVE: 04/05/25: Patient was seen and evaluated inn ED18. Patient was alert, awake, oriented. patient reports of pain in the right lower quadrant of abdomen. Patient denies nausea, vomiting today but had prior episodes nausea and vomiting yesterday. Patient mentions she had prior episode of abdominal pain but this episode had the most excruciating pain. Patient denies any fever, chills. patient denies any urinary frequency, burning sensation during urination. patient denies any change in bowel or bladder movement. 04/06/25: Patient was seen and evaluated in room 118. Patient was alert, awake, oriented. Patient underwent laparoscopic appendicectomy yesterday. Patient complaints of nausea, pain in the abdomen and mentions is due to bloating in the abdomen. Patient denies any fever, chills. patient denies any urinary frequency, burning sensation during urination. Pertinent labs today WBC-10.2, Hb-12.9 REVIEW OF SYSTEMS CONSTITUTIONAL: Denies fevers, chills, or night sweats. No unintentional weight loss reported. NEUROLOGICAL: Denies headache, amaurosis fugax, motor weakness, sensory deficit, vertigo/spinning sensation, gait abnormalities, or tremors. ENT: No hearing loss, otalgia, otorrhea, rhinitis, rhinorrhea, hoarseness, or sore throat. CARDIOVASCULAR: Denies any exertional angina, dyspnea on exertion, orthopnea, paroxysmal nocturnal dyspnea, palpitations, life-threatening arrhythmias, claudication. PULMONARY: Denies any shortness of breath, cough, phlegm/sputum, hemoptysis, pleuritic chest pain. SLEEP: Denies morning headaches, daytime somnolence or napping. Denies difficulty falling asleep, staying asleep, waking from sleep. Denies knowledge of snoring. GASTROINTESTINAL: Right lower quadrant abdominal pain, Denies nausea and vomiting Denies any type of dysphagia to either liquids or solids. Denies pyrosis, early satiety, diarrhea, constipation, or changes in stool consistency or caliber. Denies coffee-ground emesis, hematemesis, hematochezia, or melanotic stools. GENITOURINARY: Denies frequency, urgency, nocturia, hematuria or incontinence (Storage/Irritative symptoms.) Low urinary stream, straining to void, urinary intermittency or hesitancy, splitting of the voiding stream, terminal dribbling. ENDOCRINOLOGIC: Denies polyuria, polydipsia, polyphagia or heat/cold intolerances. HEMATOLOGIC: Denies thrombophilia/previous clots, or coagulopathy/bleeding disorders. ONCOLOGIC: Denies personal history of malignancy. DERMATOLOGIC: Denies rashes or pruritus. PSYCHIATRIC: Denies any suicidal or homicidal ideation. Denies hallucinations. PHYSICAL EXAM GENERAL APPEARANCE: The patient is awake, alert, and oriented, in no acute cardiopulmonary distress. NEUROLOGICAL: Cranial nerves II-XII grossly intact. Motor is 5/5 in bilateral upper and lower extremities proximal to distal. No sensory deficits. HEENT: Face is symmetric. Pupils are equal and reactive. Extraocular movements are intact. NECK: Supple. No JVD. No thyromegaly. No submental, submandibular, pre- /postauricular, occipital or supraclavicular lymphadenopathy. CHEST: Normal chest expansion. No Telemetry. LUNGS: Absence of any rales, rhonchi or any wheezing. CARDIOVASCULAR: Regular. S1 and S2 normal. No appreciable rubs, murmurs or gallops. ABDOMEN: Tenderness around right lower quadrant palpation with positive Gobles sign, Psoas sign. Soft and nondistended. There is no voluntary guarding, or rigidity. : Deferred. No Kline. EXTREMITIES: Non-edematous and not cyanotic. No clubbing. Good capillary refill. SKIN: No skin breakdown. Vital Signs (last 8hr) Date Time Temp Pulse Resp B/P (MAP) Pulse Ox O2 Delivery O2 Flow Rate FiO2 04/06/25 11:42 97.5 66 19 124/75 100 Room Air 21 04/06/25 08:00 97.5 83 21 131/81 100 Room Air 21 LABS: Laboratory: Test 04/06/25 12:22 04/06/25 05:40 04/05/25 06:04 04/04/25 22:16 Range/Units Whole Blood Glucose 126 H 70-110 MG/DL Bedside Glucose Comment Notified Nurse White Blood Count 10.2 4.8-10.8 K/uL Red Blood Count 4.07 4.00-5.50 MIL/uL Hemoglobin 12.9 12.0-16.0 g/dL Hematocrit 37.0 36-48 % Mean Corpuscular Volume 90.9 79-99 fL Mean Corpuscular Hemoglobin 31.7 27.0-33.0 pg Mean Corpuscular Hemoglobin Concent 34.9 32.0-36.0 g/dL Red Cell Distribution Width 12.1 11.0-15.5 % Platelet Count 324 130-400 K/uL Mean Platelet Volume 9.4 7.5-10.5 fL Immature Granulocyte % (Auto) 0.5 0-1 % Neutrophils (%) (Auto) 87.6 H 40.0-77.0 % Lymphocytes (%) (Auto) 10.2 L 21.0-51.0 % Monocytes (%) (Auto) 1.6 L 3.0-13.0 % Eosinophils (%) (Auto) 0.0 0.0-8.0 % Basophils (%) (Auto) 0.1 0.0-5.0 % Neutrophils # (Auto) 8.9 H 1.8-7.7 K/uL Lymphocytes # (Auto) 1.0 1.0-4.8 K/uL Monocytes # (Auto) 0.2 0.1-1.0 K/uL Eosinophils # (Auto) 0.00 0.00-0.70 K/uL Basophils # (Auto) 0.01 0.00-0.20 K/uL Absolute Immature Granulocyte (auto 0.05 0-1 K/uL Nucleated Red Blood Cells 0.0 0.0-0.19 % Sodium Level 138 136-145 mmol/L Potassium Level 3.9 3.5-5.1 mmol/L Chloride Level 103 101-111 mmol/L Carbon Dioxide Level 25 21-32 mmol/L Blood Urea Nitrogen 6 L 7-18 mg/dL Creatinine 0.8 0.5-1.0 mg/dL Glomerular Filtration Rate Calc 89 >90 mL/min Random Glucose 178 #H 70-105 mg/dL Total Calcium 8.4 L 8.5-10.1 mg/dL Prothrombin Time 11.4 9.6-11.6 SEC Prothromb Time International Ratio 1.08 0.85-1.15 Activated Partial Thromboplast Time 27.5 26.3-35.5 SEC Hemoglobin A1c 6.2 H 4.0-6.0 % Estimated Average Glucose (eAG) 131 H 70-126 mg/dL Magnesium Level 1.90 1.80-2.40 mg/dL Total Bilirubin 0.8 # 0.2-1.0 mg/dL Aspartate Amino Transf (AST/SGOT) 15 10-37 U/L Alanine Aminotransferase (ALT/SGPT) 18 12-78 U/L Alkaline Phosphatase 55 50-136 U/L Total Protein 6.2 6.0-8.3 g/dL Albumin 3.1 L 3.5-5.0 g/dL Urine Color COLORLESS YELLOW Urine Appearance CLEAR CLEAR Urine pH 6.0 5.0-8.0 Urine Specific [place] 1.019 1.001-1.031 Urine Protein NEGATIVE NEGATIVE mg/dL Urine Glucose (UA) 30 H NEGATIVE mg/dL Urine Ketones NEGATIVE NEGATIVE mg/dL Urine Occult Blood NEGATIVE NEGATIVE Urine Nitrate NEGATIVE NEGATIVE Urine Bilirubin NEGATIVE NEGATIVE mg/dL Urine Urobilinogen 0.2 0.2-1.0 mg/dL Urine Leukocyte Esterase NEGATIVE NEGATIVE Maru/uL Urine RBC 0-1 0-1 /HPF Urine WBC 0-1 0-1 /HPF Urine Bacteria None None Seen /HPF Test 04/04/25 20:35 Range/Units White Cell Morphology Comment See comments Direct Bilirubin 0.1 0.0-0.3 mg/dL Lipase 32 16-77 U/L Serum Test, Qualitative NEGATIVE NEGATIVE Current Medications Medications (Trade) Dose Ordered Sig/Ann Marie Route PRN Reason Start Time Stop Time Status Last Admin Dose Admin Dextrose (D50w) 50 ml AD PRN IV HYPOGLYCEMIA PROTOCOL 04/05/25 00:00 05/05/25 00:00 Famotidine (Pepcid 20mg Vial) 20 mg DAILY IV 04/05/25 09:00 05/05/25 08:59 04/06/25 09:08 20 MG Fentanyl Citrate (FENTanyl CITRate PF 50 MCG/ 1 ML 2ML VIAL) 25 mcg Q5MIN PRN IVP PAIN LEVEL 7 TO 10 04/05/25 20:30 04/06/25 09:06 DC Glucagon (Glucagon 1mg Kit) 1 mg AD PRN IM HYPOGLYCEMIA PROTOCOL 04/05/25 00:00 05/05/25 00:00 Hydromorphone HCl (DiLAUDid 1MG INJ) 1 mg Q3H3 PRN IVP SEVERE PAIN (7-10) 04/06/25 04:00 04/11/25 03:59 04/06/25 07:53 1 MG Insulin Human Regular (humuLIN R 100 UNIT/ML 3ML) INSULIN SLIDING SCAL... ACHS SQ 04/05/25 07:30 05/05/25 07:29 04/06/25 08:03 2 UNIT Ketorolac Tromethamine (toRADol) 30 mg AD PRN IV PAIN LEVEL 1 TO 3 04/05/25 21:00 04/06/25 09:06 DC Metoclopramide HCl (regLAN 10MG IV) 10 mg AD PRN IVP NAUSEA/VOMITING 04/05/25 21:00 04/06/25 09:06 DC Morphine Sulfate (morPHINE 2MG SYG) 2 mg AD PRN IVP PAIN LEVEL 4 TO 6 04/05/25 20:30 04/06/25 09:06 DC 04/05/25 20:54 2 MG Morphine Sulfate (morPHINE 2MG SYG) 2 mg Q4H PRN IV MODERATE PAIN (4-6) 04/05/25 00:00 04/12/25 00:00 04/06/25 01:59 2 MG Naloxone HCl (NARcan 0.4mg/1 mL) 0.1 mg AD PRN IVP OTHER [SEE ORDER COMMENTS] 04/05/25 20:40 04/06/25 09:06 DC Ondansetron HCl (zoFRAN 4MG INJ) 4 mg AD PRN IVP NAUSEA/VOMITING 04/05/25 21:00 04/06/25 09:06 DC Ondansetron HCl (zoFRAN 4MG INJ) 4 mg Q6H PRN IV NAUSEA/VOMITING 04/05/25 00:00 05/05/25 00:00 04/06/25 09:08 4 MG Oxycodone/ Acetaminophen (perCOCET) 1 tab Q4H PRN PO SEVERE PAIN (7-10) 04/06/25 04:00 04/13/25 03:59 Piperacillin Sod/ Tazobactam Sod 50 ml @ 12.5 mls/hr Q8H IV 04/05/25 05:00 04/15/25 04:59 04/06/25 14:06 12.5 MLS/HR Potassium Chloride 100 ml @ 50 mls/hr AD PRN IV POTASSIUM PROTOCOL 04/05/25 15:30 05/05/25 15:29 Promethazine HCl (Phenergan) 25 mg AD PRN IM NAUSEA/VOMITING 04/05/25 21:00 04/06/25 09:06 DC Sodium Chloride 1,000 ml @ 0 mls/hr Q0M IV 04/04/25 21:00 04/05/25 20:49 DC 04/04/25 20:43 75 MLS/HR Sodium Chloride 1,000 ml @ 100 mls/hr Q10H IV 04/05/25 00:00 05/05/25 00:00 04/05/25 09:10 100 MLS/HR DIAGNOSTICS / RADIOLOGY: [address] [address] IMAGING REPORT Addendum PATIENT: ARIS MUHAMMAD MR#: [id number] : 1970 SEX: F AGE: 54 LOCATION: [facility] ORDER 04 STATUS: REG ER REPORT#: [id number] SERVICE 03 REASON: acute abd? 21k wbc. rlq llq tenderness ORDERING PHYSICIAN: LUCAS SERNA MD PROCEDURE: ABD PEL W - CT ABDOMEN/PELVIS W/CONTRAST ADDENDUM REPORT ADDENDUM: Results were shared by telephone at 11:02 PM EST on 04-04-25 and acknowledged by Lucas Burgos. /[place] EXAM: CT Abdomen and Pelvis with IV contrast CLINICAL HISTORY: The pain. Right lower and left lower quadrant pain. TECHNIQUE: Axial computed tomography images of the abdomen and pelvis with intravenous contrast. CONTRAST: with intravenous contrast, 100 ml Omnipaque 350 COMPARISON: None provided. FINDINGS: LUNG BASES: The lung bases appear clear. No pleural effusions are seen. LIVER: 0.7 cm and 0.5 cm hypodense lesions in segment IV, likely cysts. GALLBLADDER AND BILE DUCTS: The gallbladder appears within normal limits. No radioopaque gallstones are seen. No biliary ductal dilatation is evident. PANCREAS: Unremarkable. SPLEEN: Unremarkable. ADRENAL GLANDS: Unremarkable. KIDNEYS, URETERS, AND BLADDER: 0.5 cm cyst in the upper polar region of the left kidney. The kidneys appear within normal limits. There is no hydronephrosis or hydroureter. No urinary calculi are seen. STOMACH AND BOWEL: Unremarkable appearance of the stomach and bowel. No evidence of bowel obstruction. No evidence suggesting enteritis or colitis. APPENDIX: The appendix is distended with a maximum diameter measuring up to 1.4 cm. Mild appendiceal wall thickening with moderate periappendiceal inflammatory changes. No collection. No perforation. PERITONEUM: No free fluid. No free air. LYMPH NODES: No lymphadenopathy is evident. REPRODUCTIVE: The uterus is surgically absent. No adnexal lesion. VASCULATURE: Atherosclerotic wall calcifications in the abdominal aorta. No evidence of abdominal aortic aneurysm. BONES: No aggressive appearing osseous lesion. No acute osseous pathology evident. IMPRESSION: Acute appendicitis. No appendicolith, perforation or collection. /[place] DICTATED BY: KYLE JAIME MD DATE: 11/11/25 2304 ELECTRONICALLY SIGNED BY: DATE: EXAM: CT Abdomen and Pelvis with IV contrast CLINICAL HISTORY: The pain. Right lower and left lower quadrant pain. TECHNIQUE: Axial computed tomography images of the abdomen and pelvis with intravenous contrast. CONTRAST: with intravenous contrast, 100 ml Omnipaque 350 COMPARISON: None provided. FINDINGS: LUNG BASES: The lung bases appear clear. No pleural effusions are seen. LIVER: 0.7 cm and 0.5 cm hypodense lesions in segment IV, likely cysts. GALLBLADDER AND BILE DUCTS: The gallbladder appears within normal limits. No radioopaque gallstones are seen. No biliary ductal dilatation is evident. PANCREAS: Unremarkable. SPLEEN: Unremarkable. ADRENAL GLANDS: Unremarkable. KIDNEYS, URETERS, AND BLADDER: 0.5 cm cyst in the upper polar region of the left kidney. The kidneys appear within normal limits. There is no hydronephrosis or hydroureter. No urinary calculi are seen. STOMACH AND BOWEL: Unremarkable appearance of the stomach and bowel. No evidence of bowel obstruction. No evidence suggesting enteritis or colitis. APPENDIX: The appendix is distended with a maximum diameter measuring up to 1.4 cm. Mild appendiceal wall thickening with moderate periappendiceal inflammatory changes. No collection. No perforation. PERITONEUM: No free fluid. No free air. LYMPH NODES: No lymphadenopathy is evident. REPRODUCTIVE: The uterus is surgically absent. No adnexal lesion. VASCULATURE: Atherosclerotic wall calcifications in the abdominal aorta. No evidence of abdominal aortic aneurysm. BONES: No aggressive appearing osseous lesion. No acute osseous pathology evident. IMPRESSION: Acute appendicitis. No appendicolith, perforation or collection. /[place] DICTATED BY: KYLE JAIME MD DATE: 04/04/252254 ELECTRONICALLY SIGNED BY: KYLE JAIME MD DATE: 04/04/252254 ASSESSMENT: Acute appendicitis POA Acute leukocytosis POA Hyponatremia POA Uncontrolled diabetes POA PLAN: Acute appendicitis POA: * On presentation vitals were - temperature 99, heart rate 76, blood pressure 126/90 saturation 100% on room air. Pertinent Labs WBC 21 with negative left shift of neutrophils 85. Sodium 135, glucose 171 serum test negative. * WBC trends- 21>11.8>10.2 * CT abdomen with contrast was ordered, results show findings of acute appendicitis with no appendicolith, perforation or collection. * blood culture was ordered, pending results. * General surgery was consulted, will follow recommendations * Patient underwent laparoscopic appendicectomy on 04/06/25. * Patient was advanced to clear fluid diet. * Patient is continuing on empirical antibiotics with Zosyn (day 1) * Patient is continuing on Morphine 2mg for analgesia * Patient is continuing on IV fluids with sodium chloride. * Patient is continuing ondansetron 4mg for nausea. Hyponatremia POA: * On presentation Sodium was 135. Sodium trends - 135>140>138 * Patient started on IV fluids with sodium chloride. * Will monitor with daily labs. Supportive measures: Started on famotidine 20 mg IV daily for GI prophylaxis DVT prophylaxis with SCD's. ATTESTATION BY PHYSICIAN I have seen and examined the patient. I reviewed the documentation, medical decision making, and treatment plan as noted by the resident physician above. I agree with the findings and plan of care. LAUREANO GALLEGO MD, SHAJI MD Apr 06, 2025 14:26
[2025-04-07] VITALS: BP 117/73; PULSE 70; RESP 17; TEMP 97.8
[2025-04-07 04:00] VITALS: BP 115/71; PULSE 64; RESP 17; TEMP 97.5
[2025-04-07 05:54] LABS: IMMATURE GRANULOCYTE ABSOLUTE 0.01 K/uL (0-1); NUCLEATED RED BLOOD CELLS 0.0 % (0.0-0.19); PLATELET COUNT (AUTO) 293 K/uL (130-400); RED BLOOD CELL COUNT(AUTO) 3.57 MIL/uL (4.00-5.50); RED CELL DISTRIBUTION WIDTH 12.4 % (11.0-15.5); WHITE BLOOD COUNT (AUTO) 8.4 K/uL (4.8-10.8)
[2025-04-07 06:27] LABS: CREATININE 0.7 mg/dL (0.5-1.0); GLOMERULAR FILTR. RATE CALC 104.0 mL/min (>90); GLUCOSE,RANDOM 84.0 mg/dL (70-105); SODIUM SERUM 142.0 mmol/L (136-145); UREA NITROGEN, BLOOD 6.0 mg/dL (7-18)
[2025-04-07 08:07] VITALS: BP 115/74; PULSE 60; RESP 13; TEMP 97.7
[2025-04-07] MEDS ORDERED: EMPA25TA PO (10:15)
[2025-04-07] MEDS ORDERED: METF-446 PO (10:15)
[2025-04-07 11:00] VITALS: O2SAT 99
[2025-04-07] MEDS ORDERED: PoTASSium chl 10% ELIXIR 20MEQ 20 MEQ/15 ML UDCUP PO PRN (11:30)
[2025-04-07 11:34] VITALS: BP 123/72; PULSE 63; RESP 12; TEMP 98
[2025-04-07] MEDS: PoTASSium chloRIDE 20MEQ ER 20 MEQ ERTAB PO PRN (11:44)
[2025-04-07 16:16] VITALS: BP 134/81; PULSE 81; RESP 14; TEMP 98
--- NOTE | 2025-04-07 17:58 | PN ---
GENERAL SURGERY PROGRESS NOTE DATE OF SERVICE: Apr 07, 2025 TIME OF SERVICE: 17:57 Feels much better Minimal pain No nausea or vomiting PROBLEM LISTS: [ ] Acute appendicitis INTERVAL HISTORY: [ ] Status post laparoscopic appendectomy PHYSICAL EXAMINATION: GENERAL: [Patient is lying comfortably in bed, not in any obvious distress.] HEAD: [Normal with no signs of head trauma.] EYES: [Not pale not jaundiced afebrile to touch.] ENT: [ Normal.] NECK: [Supple,no tenderness,no lymphadenopathy,no masses,no thyromegaly ,no bruits, no JVD.] LUNGS: [Clear breath sounds bilaterally. No wheezes, rales, or rhonchi.] HEART: [Regular rate and rhythm. Normal S1 and S2, without murmurs, rub or gallop.] VASC: [No edema. Peripheral pulses normal and equal in all extremities.] ABD: [Soft dressings in place : [Normal, no suprapubic tenderness.] LYMPH: [No lymphadenopathy noted.] EXT: [ Warm soft, non tender.] SKIN: [ No rashes or lesions.] NEURO: [ Awake Alert and oriented x3.] LABORATORY: [ ] Hematology Labs: Test 04/07/25 05:28 Range/Units White Blood Count 8.4 4.8-10.8 K/uL Red Blood Count 3.57 L 4.00-5.50 MIL/uL Hemoglobin 11.0 L 12.0-16.0 g/dL Hematocrit 32.7 L 36-48 % Mean Corpuscular Volume 91.6 79-99 fL Mean Corpuscular Hemoglobin 30.8 27.0-33.0 pg Mean Corpuscular Hemoglobin Concent 33.6 32.0-36.0 g/dL Red Cell Distribution Width 12.4 11.0-15.5 % Platelet Count 293 130-400 K/uL Mean Platelet Volume 9.5 7.5-10.5 fL Immature Granulocyte % (Auto) 0.1 0-1 % Neutrophils (%) (Auto) 46.4 40.0-77.0 % Lymphocytes (%) (Auto) 45.4 21.0-51.0 % Monocytes (%) (Auto) 7.3 3.0-13.0 % Eosinophils (%) (Auto) 0.4 0.0-8.0 % Basophils (%) (Auto) 0.4 0.0-5.0 % Neutrophils # (Auto) 3.9 1.8-7.7 K/uL Lymphocytes # (Auto) 3.8 1.0-4.8 K/uL Monocytes # (Auto) 0.6 0.1-1.0 K/uL Eosinophils # (Auto) 0.03 0.00-0.70 K/uL Basophils # (Auto) 0.03 0.00-0.20 K/uL Absolute Immature Granulocyte (auto 0.01 0-1 K/uL Nucleated Red Blood Cells 0.0 0.0-0.19 % Chemistry Labs: Test 04/07/25 15:47 04/07/25 05:28 04/06/25 16:31 Range/Units Whole Blood Glucose 125 H 70-110 MG/DL Sodium Level 142 136-145 mmol/L Potassium Level 3.1 L 3.5-5.1 mmol/L Chloride Level 106 101-111 mmol/L Carbon Dioxide Level 27 21-32 mmol/L Blood Urea Nitrogen 6 L 7-18 mg/dL Creatinine 0.7 0.5-1.0 mg/dL Glomerular Filtration Rate Calc 104 >90 mL/min Random Glucose 84 # 70-105 mg/dL Total Calcium 8.2 L 8.5-10.1 mg/dL Bedside Glucose Comment Notified Nurse DIAGNOSTICS / RADIOLOGY: [Copy/Paste Echos/Imaging Report here] ASSESSMENT: [] S/p laparoscopic appendectomy PLAN: Regular diet Okay to DC home Follow-up in my office 2-3 weeks SARAH FERRER MD Apr 07, 2025 17:57
--- NOTE | 2025-04-07 19:15 | NUR ---
GAVE PATIENT DISCHARGE INSTRUCTIONS, ADVISED PATIENT WHEN HER THEY WERE HERE TO PICK HER UP TO ADVISED THE NIGHT NURSES TO REMOVE HER IV. ADVISED LEADERSHIP COACH NURSE THAT PATIENT WAS WAITING TO GET PICKED UP BY A FRIEND COMING FROM [place].
--- NOTE | 2025-04-10 18:19 | PN ---
[facility] PROGRESS NOTE Date of Service: Apr 10, 2025 Time of Service: 18:19 HISTORY OF PRESENT ILLNESS: This is a 54-year-old female from [place] with past medical history of diabetes who presents to the ED for complaints of abdominal pain, nausea and vomiting.Patient states she started having nausea for the past 2 days and today she vomited 2 x and developed diffuse abdominal pain which has localized to right lower quadrant so she decided to come to be evaluated.Patient states she has similar problem 2 years ago and was told it was resolved. Seen and examined patient in the ED ,awake,alert and coherent,appears uncomfortable c/o abdominal pain 5/10 pain level.Patient denies fever,chills,dysuria,chest pain,palpitation and shortness of breath. Latest vital signs temperature 99, heart rate 76, blood pressure 126/90 saturation 100% on room air. Labs: WBC 21 with negative left shift of neutrophils 85. Sodium 135, glucose 171 serum test negative. Urinalysis is unremarkable. CT abdomen and pelvis with contrast result revealed acute appendicitis. No appendicolith perforation or collection. While in the ER patient received Bentyl 20 mg p.o., 1 L NS bolus, Zofran 4 mg IV, morphine 2 mg IV and Zosyn IV. General surgeon transition advisor was consulted per ER MD's report we will admit patient for further medical management. SUBJECTIVE: 04/05/25: Patient was seen and evaluated inn ED18. Patient was alert, awake, oriented. patient reports of pain in the right lower quadrant of abdomen. Patient denies nausea, vomiting today but had prior episodes nausea and vomiting yesterday. Patient mentions she had prior episode of abdominal pain but this episode had the most excruciating pain. Patient denies any fever, chills. patient denies any urinary frequency, burning sensation during urination. patient denies any change in bowel or bladder movement. 04/06/25: Patient was seen and evaluated in room 118. Patient was alert, awake, oriented. Patient underwent laparoscopic appendicectomy yesterday. Patient complaints of nausea, pain in the abdomen and mentions is due to bloating in the abdomen. Patient denies any fever, chills. patient denies any urinary frequency, burning sensation during urination. Pertinent labs today WBC-10.2, Hb-12.9 REVIEW OF SYSTEMS CONSTITUTIONAL: Denies fevers, chills, or night sweats. No unintentional weight loss reported. NEUROLOGICAL: Denies headache, amaurosis fugax, motor weakness, sensory deficit, vertigo/spinning sensation, gait abnormalities, or tremors. ENT: No hearing loss, otalgia, otorrhea, rhinitis, rhinorrhea, hoarseness, or sore throat. CARDIOVASCULAR: Denies any exertional angina, dyspnea on exertion, orthopnea, paroxysmal nocturnal dyspnea, palpitations, life-threatening arrhythmias, claudication. PULMONARY: Denies any shortness of breath, cough, phlegm/sputum, hemoptysis, pleuritic chest pain. SLEEP: Denies morning headaches, daytime somnolence or napping. Denies difficulty falling asleep, staying asleep, waking from sleep. Denies knowledge of snoring. GASTROINTESTINAL: Right lower quadrant abdominal pain, Denies nausea and vomiting Denies any type of dysphagia to either liquids or solids. Denies pyrosis, early satiety, diarrhea, constipation, or changes in stool consistency or caliber. Denies coffee-ground emesis, hematemesis, hematochezia, or melanotic stools. GENITOURINARY: Denies frequency, urgency, nocturia, hematuria or incontinence (Storage/Irritative symptoms.) Low urinary stream, straining to void, urinary intermittency or hesitancy, splitting of the voiding stream, terminal dribbling. ENDOCRINOLOGIC: Denies polyuria, polydipsia, polyphagia or heat/cold intolerances. HEMATOLOGIC: Denies thrombophilia/previous clots, or coagulopathy/bleeding disorders. ONCOLOGIC: Denies personal history of malignancy. DERMATOLOGIC: Denies rashes or pruritus. PSYCHIATRIC: Denies any suicidal or homicidal ideation. Denies hallucinations. PHYSICAL EXAM GENERAL APPEARANCE: The patient is awake, alert, and oriented, in no acute cardiopulmonary distress. NEUROLOGICAL: Cranial nerves II-XII grossly intact. Motor is 5/5 in bilateral upper and lower extremities proximal to distal. No sensory deficits. HEENT: Face is symmetric. Pupils are equal and reactive. Extraocular movements are intact. NECK: Supple. No JVD. No thyromegaly. No submental, submandibular, pre- /postauricular, occipital or supraclavicular lymphadenopathy. CHEST: Normal chest expansion. No Telemetry. LUNGS: Absence of any rales, rhonchi or any wheezing. CARDIOVASCULAR: Regular. S1 and S2 normal. No appreciable rubs, murmurs or gallops. ABDOMEN: Tenderness around right lower quadrant palpation with positive [place] sign, Psoas sign. Soft and nondistended. There is no voluntary guarding, or rigidity. : Deferred. No Kline. EXTREMITIES: Non-edematous and not cyanotic. No clubbing. Good capillary refill. SKIN: No skin breakdown. LABS: Current Medications Medications (Trade) Dose Ordered Sig/Ann Marie Route PRN Reason Start Time Stop Time Status Last Admin Dose Admin Dextrose (D50w) 50 ml AD PRN IV HYPOGLYCEMIA PROTOCOL 04/05/25 00:00 04/07/25 20:53 DC Famotidine (Pepcid 20mg Vial) 20 mg DAILY IV 04/05/25 09:00 04/07/25 20:53 DC 04/07/25 09:22 20 MG Fentanyl Citrate (FENTanyl CITRate PF 50 MCG/ 1 ML 2ML VIAL) 25 mcg Q5MIN PRN IVP PAIN LEVEL 7 TO 10 04/05/25 20:30 04/06/25 09:06 DC Glucagon (Glucagon 1mg Kit) 1 mg AD PRN IM HYPOGLYCEMIA PROTOCOL 04/05/25 00:00 04/07/25 20:53 DC Hydromorphone HCl (DiLAUDid 1MG INJ) 1 mg Q3H3 PRN IVP SEVERE PAIN (7-10) 04/06/25 04:00 04/07/25 20:53 DC 04/07/25 17:44 1 MG Insulin Human Regular (humuLIN R 100 UNIT/ML 3ML) INSULIN SLIDING SCAL... ACHS SQ 04/05/25 07:30 04/07/25 20:53 DC 04/06/25 08:03 2 UNIT Ketorolac Tromethamine (toRADol) 30 mg AD PRN IV PAIN LEVEL 1 TO 3 04/05/25 21:00 04/06/25 09:06 DC Metoclopramide HCl (regLAN 10MG IV) 10 mg AD PRN IVP NAUSEA/VOMITING 04/05/25 21:00 04/06/25 09:06 DC Morphine Sulfate (morPHINE 2MG SYG) 2 mg AD PRN IVP PAIN LEVEL 4 TO 6 04/05/25 20:30 04/06/25 09:06 DC 04/05/25 20:54 2 MG Morphine Sulfate (morPHINE 2MG SYG) 2 mg Q4H PRN IV MODERATE PAIN (4-6) 04/05/25 00:00 04/07/25 06:12 DC 04/07/25 00:52 2 MG Naloxone HCl (NARcan 0.4mg/1 mL) 0.1 mg AD PRN IVP OTHER [SEE ORDER COMMENTS] 04/05/25 20:40 04/06/25 09:06 DC Ondansetron HCl (zoFRAN 4MG INJ) 4 mg AD PRN IVP NAUSEA/VOMITING 04/05/25 21:00 04/06/25 09:06 DC Ondansetron HCl (zoFRAN 4MG INJ) 4 mg Q6H PRN IV NAUSEA/VOMITING 04/05/25 00:00 04/07/25 20:53 DC 04/07/25 17:43 4 MG Oxycodone/ Acetaminophen (perCOCET) 1 tab Q4H PRN PO SEVERE PAIN (7-10) 04/06/25 04:00 04/07/25 20:53 DC 04/06/25 21:02 1 TAB Piperacillin Sod/ Tazobactam Sod 50 ml @ 12.5 mls/hr Q8H IV 04/05/25 05:00 04/07/25 20:53 DC 04/07/25 13:32 12.5 MLS/HR Potassium Chloride 100 ml @ 50 mls/hr AD PRN IV POTASSIUM PROTOCOL 04/05/25 15:30 04/07/25 20:53 DC Potassium Chloride (K-Dur/Klor-Con 20meq) 20 meq AD PRN PO POTASSIUM PROTOCOL 04/07/25 11:30 04/07/25 20:53 DC 04/07/25 11:44 20 MEQ Potassium Chloride (KCl 10% Elixir 20meq/15ml) 20 meq AD PRN PO POTASSIUM PROTOCOL 04/07/25 11:30 04/07/25 20:53 DC Promethazine HCl (Phenergan) 25 mg AD PRN IM NAUSEA/VOMITING 04/05/25 21:00 04/06/25 09:06 DC Sodium Chloride 1,000 ml @ 0 mls/hr Q0M IV 04/04/25 21:00 04/05/25 20:49 DC 04/04/25 20:43 75 MLS/HR Sodium Chloride 1,000 ml @ 100 mls/hr Q10H IV 04/05/25 00:00 04/07/25 20:53 DC 04/07/25 13:18 100 MLS/HR DIAGNOSTICS / RADIOLOGY: [ ] ASSESSMENT: Acute appendicitis POA Acute leukocytosis POA Hyponatremia POA Uncontrolled diabetes POA PLAN: Acute appendicitis POA: * On presentation vitals were - temperature 99, heart rate 76, blood pressure 126/90 saturation 100% on room air. Pertinent Labs WBC 21 with negative left shift of neutrophils 85. Sodium 135, glucose 171 serum test negative. * WBC trends- 21>11.8>10.2 * CT abdomen with contrast was ordered, results show findings of acute appendicitis with no appendicolith, perforation or collection. * blood culture was ordered, pending results. * General surgery was consulted, will follow recommendations * Patient underwent laparoscopic appendicectomy on 04/06/25. * Patient was advanced to clear fluid diet. * Patient is continuing on empirical antibiotics with Zosyn (day 1) * Patient is continuing on Morphine 2mg for analgesia * Patient is continuing on IV fluids with sodium chloride. * Patient is continuing ondansetron 4mg for nausea. Hyponatremia POA: * On presentation Sodium was 135. Sodium trends - 135>140>138 * Patient started on IV fluids with sodium chloride. * Will monitor with daily labs. Supportive measures: Started on famotidine 20 mg IV daily for GI prophylaxis DVT prophylaxis with SCD's. FARRAH THURMAN MD Apr 10, 2025 18:19
--- NOTE | 2025-04-10 18:20 | DS ---
Discharge Summary Hospital Course Summary: LATE NOTE, PATIENT DISCHARGED ON 04/07/25 A 54-year-old female with a history of diabetes mellitus presented to the emergency department with a two-day history of progressive nausea and intermittent vomiting, followed by the onset of diffuse abdominal pain that localized to the right lower quadrant. She denied fever, chills, dysuria, chest pain, palpitations, or shortness of breath. On initial evaluation, she was alert and oriented but appeared uncomfortable, reporting abdominal pain at a level of 5/10. Vital signs were notable for a temperature of 99F, heart rate of 76 bpm, blood pressure of 126/90 mmHg, and oxygen saturation of 100% on room air. Laboratory studies revealed a marked leukocytosis (WBC 21,000/?L, neutrophils 85% without left shift), mild hyponatremia (sodium 135 mmol/L), and hyperglycemia (glucose 171 mg/dL). Urinalysis was unremarkable, and a serum test was negative. Given the classic presentation of migratory right lower quadrant pain, nausea, vomiting, and leukocytosis, acute appendicitis was strongly suspected. A CT scan of the abdomen and pelvis with contrast confirmed acute appendicitis without evidence of appendicolith, perforation, or abscess. Blood cultures were obtained, and the patient was started on empiric intravenous antibiotics (piperacillin-tazobactam), intravenous fluids with sodium chloride, antiemetics (ondansetron), and analgesia (morphine). General surgery was consulted, and the decision was made to proceed with surgical management. The patient underwent a laparoscopic appendectomy on hospital day two. Intraoperative findings were consistent with acute, non-perforated appendicitis. Postoperatively, the patient was monitored closely for complications, with particular attention to glycemic control given her underlying diabetes. Her pain and nausea were managed with s cheduled acetaminophen, as-needed morphine, and ondansetron. She was advanced to a clear fluid diet on postoperative day one, in line with enhanced recovery protocols that promote early feeding to facilitate bowel function and improve patient satisfaction. Intravenous fluids were discontinued as soon as oral intake was established, and daily laboratory monitoring showed normalization of her WBC count (21 > 11.8 > 10.2) and improvement in sodium levels (135 > 140 > 138) Throughout her hospital stay, the patient remained afebrile and hemodynamically stable, with no evidence of surgical site infection or systemic complications. She reported gradual improvement in abdominal pain and resolution of nausea. Her diabetes was transitioned back to her home regimen as she resumed a regular diet. She was discharged in stable condition with instructions for wound care, glycemic monitoring, and outpatient follow-up Chief Fundraising Officer(s): General Surgery consult was done by Dr. Gamino ASSESSMENT: [] Acute appendicitis PLAN: [] NPO/IVF/IV ANTIOBIOTICS Schedule for OR We talked about various treatment options including but not limited to surgery. We talked about risks and benefits of surgery, patient verbalized understanding has agreed to proceed [ ]. We will schedule [ ]. Laparoscopic Appendectomy possible open Procedure(s): [facility] [address] [place] [id number] [address] Davalos Laparoscopic Appe Patient Name: Izzy Muhammad Unit Number: [id number] Date of : 1970 Patient Status: Discharged Inpatient Attending Doctor: Walter Vaz MD Dr. Davalos Lap [place] OPERATIVE NOTE: DATE OF SERVICE: 04/05/2025 PREOPERATIVE DIAGNOSIS: Acute appendicitis. POSTOPERATIVE DIAGNOSIS: Acute appendicitis. PROCEDURE PERFORMED: Laparoscopic appendectomy. SURGEON: João Ferrer MD ANESTHESIA: General. ESTIMATED BLOOD LOSS: Minimal. FINDINGS: Acutely inflamed appendix. SPECIMEN REMOVED: Appendix. COMPLICATIONS: None. DESCRIPTION OF PROCEDURE: The patient was brought into the Operating Room. After proper identification, the patient was placed on the operating table in the supine position. General anesthesia was then administered and the patient was endotracheally intubated. Attention was then focussed in the area of the abdomen. The same was prepped and draped in the usual sterile fashion. An appropriate time-out was then carried out at this point. Then, I proceeded by making a supraumbilical incision. The incision was carried through skin and subcutaneous tissue till the fascia was identified. Fascia was then carefully incised. Stay stitches were placed on either side of the fascia and the Kiah port was then introduced. The CO2 was then insufflated into the abdomen and the laparoscope was then introduced. Inspection of the abdomen showed evidence of right lower quadrant inflammation and elongated inflamed appendix. So, at this point, I proceeded by placing 2 additional ports, one in the suprapubic region and one in the left lower quadrant. The patient was then placed in Trendelenburg position and rotated to his left. The appendix was then grasped and the attachment of the appendix to the lateral wall was then taken down using the Harmonic scalpel. Once this was done, the mesoappendix was then opened and the appendiceal vessels were then taken using the vascular load of the Endo NATE. The appendix itself was then taken from the base of the cecum using the tissue load of the Endo NATE. The specimen was then delivered using an Endopouch. Copious amount of irrigation was carried out at this point. Hemostasis was noted to be adequate. Then I proceeded by closing the wound. Ports were withdrawn under vision. CO2 was let out of the abdomen and the supraumbilical fascia was approximated together using 0 Vicryl [id number] stitches and the skin was approximated together using 4-0 Monocryl subcuticular closure. Steri-Strips and sterile dressings were then applied. Instrument and sponges count were found to be correct x2. The patient was then woken up, extubated and taken to Recovery Room in stable condition. The patient tolerated the procedure well. JOÃO FERRER MD Apr 05, 2025 20:[address] [address] IMAGING REPORT Addendum PATIENT: IZZY MUHAMMAD MR#: [id number] : 1970 SEX: F AGE: 54 LOCATION: [facility] ORDER 04 STATUS: REG ER REPORT#: [id number] SERVICE 03 REASON: acute abd? 21k wbc. rlq llq tenderness ORDERING PHYSICIAN: LUCAS SERNA MD PROCEDURE: ABD PEL W - CT ABDOMEN/PELVIS W/CONTRAST ADDENDUM REPORT ADDENDUM: Results were shared by telephone at 11:02 PM EST on 04-04-25 and acknowledged by Lucas Burgos. /[place]astern EXAM: CT Abdomen and Pelvis with IV contrast CLINICAL HISTORY: The pain. Right lower and left lower quadrant pain. TECHNIQUE: Axial computed tomography images of the abdomen and pelvis with intravenous contrast. CONTRAST: with intravenous contrast, 100 ml Omnipaque 350 COMPARISON: None provided. FINDINGS: LUNG BASES: The lung bases appear clear. No pleural effusions are seen. LIVER: 0.7 cm and 0.5 cm hypodense lesions in segment IV, likely cysts. GALLBLADDER AND BILE DUCTS: The gallbladder appears within normal limits. No radioopaque gallstones are seen. No biliary ductal dilatation is evident. PANCREAS: Unremarkable. SPLEEN: Unremarkable. ADRENAL GLANDS: Unremarkable. KIDNEYS, URETERS, AND BLADDER: 0.5 cm cyst in the upper polar region of the left kidney. The kidneys appear within normal limits. There is no hydronephrosis or hydroureter. No urinary calculi are seen. STOMACH AND BOWEL: Unremarkable appearance of the stomach and bowel. No evidence of bowel obstruction. No evidence suggesting enteritis or colitis. APPENDIX: The appendix is distended with a maximum diameter measuring up to 1.4 cm. Mild appendiceal wall thickening with moderate periappendiceal inflammatory changes. No collection. No perforation. PERITONEUM: No free fluid. No free air. LYMPH NODES: No lymphadenopathy is evident. REPRODUCTIVE: The uterus is surgically absent. No adnexal lesion. VASCULATURE: Atherosclerotic wall calcifications in the abdominal aorta. No evidence of abdominal aortic aneurysm. BONES: No aggressive appearing osseous lesion. No acute osseous pathology evident. IMPRESSION: Acute appendicitis. No appendicolith, perforation or collection. /[place] DICTATED BY: KYLE JAIME MD DATE: 04/04/252303 ELECTRONICALLY SIGNED BY: DATE: EXAM: CT Abdomen and Pelvis with IV contrast CLINICAL HISTORY: The pain. Right lower and left lower quadrant pain. TECHNIQUE: Axial computed tomography images of the abdomen and pelvis with intravenous contrast. CONTRAST: with intravenous contrast, 100 ml Omnipaque 350 COMPARISON: None provided. FINDINGS: LUNG BASES: The lung bases appear clear. No pleural effusions are seen. LIVER: 0.7 cm and 0.5 cm hypodense lesions in segment IV, likely cysts. GALLBLADDER AND BILE DUCTS: The gallbladder appears within normal limits. No radioopaque gallstones are seen. No biliary ductal dilatation is evident. PANCREAS: Unremarkable. SPLEEN: Unremarkable. ADRENAL GLANDS: Unremarkable. KIDNEYS, URETERS, AND BLADDER: 0.5 cm cyst in the upper polar region of the left kidney. The kidneys appear within normal limits. There is no hydronephrosis or hydroureter. No urinary calculi are seen. STOMACH AND BOWEL: Unremarkable appearance of the stomach and bowel. No evidence of bowel obstruction. No evidence suggesting enteritis or colitis. APPENDIX: The appendix is distended with a maximum diameter measuring up to 1.4 cm. Mild appendiceal wall thickening with moderate periappendiceal inflammatory changes. No collection. No perforation. PERITONEUM: No free fluid. No free air. LYMPH NODES: No lymphadenopathy is evident. REPRODUCTIVE: The uterus is surgically absent. No adnexal lesion. VASCULATURE: Atherosclerotic wall calcifications in the abdominal aorta. No evidence of abdominal aortic aneurysm. BONES: No aggressive appearing osseous lesion. No acute osseous pathology evident. IMPRESSION: Acute appendicitis. No appendicolith, perforation or collection. /[place] DICTATED BY: KYLE JAIME MD DATE: 04/04/252254 ELECTRONICALLY SIGNED BY: KYLE JAIME MD DATE: 04/04/252254 Assessment/Plan: ASSESSMENT: Acute appendicitis POA Acute leukocytosis POA Hyponatremia POA Uncontrolled diabetes POA Discharge Instructions: Follow up with PCP within 2,3 days Follow up with Surgery consult, within 3 weeks Complete the course of antibiotic Augmentin as prescribed Take meds for pain, constipation, Nausea as needed Keep incision site clean and dry Monitor for signs of infection like redness, warmth, swelling, foul swelling discharge Avoid greasy, heavy, very spicy foods Monitor for symptoms like fever, increasing abdominal pain, persistent vomiting, inability to tolerate fluids, shortness of breath, chest pain, persistent constipation or bloating that worsens and seek immediate medical attention in such scenario Home Medications: Reported Medications Empagliflozin (Jardiance) 25 Mg Tablet, 1 TAB PO DAILY for 30 Days, #30 TAB 0 Refills 04/07/25 Metformin HCl (Metformin HCl) 1,000 Mg Tablet, 1 TAB PO BID for 30 Days, #60 TAB 0 Refills 04/07/25 Continued Medications: Empagliflozin (Jardiance) 25 Mg Tablet 1 TAB PO DAILY for 30 Days, #30 TAB 0 Refills Metformin HCl (Metformin HCl) 1,000 Mg Tablet 1 TAB PO BID for 30 Days, #60 TAB 0 Refills Time spent arranging discharge: 31-60 minutes ATTESTATION BY PHYSICIAN I have seen and examined the patient. I reviewed the documentation, medical decision making, and treatment plan as noted by the resident physician above. I agree with the findings and plan of care. LAUREANO GALLEGO MD, SHAJI MD Apr 10, 2025 18:20
== END 2025-04-07 20:00 | disposition home or self-care (01) | DRG 398 ==
LOC: EDH 20:19 → EDHIP 23:42 → 1MS 04-05 11:30
PROVIDERS: ADMIT Internal Medicine; ATTEND Internal Medicine
PROC: 3E0T3BZ Introduction of Anesthetic Agent into Peripheral Nerves and Plexi, Percutaneous Approach (ICD-10-PCS; 2025-04-05)
PROC: 0DTJ4ZZ Resection of Appendix, Percutaneous Endoscopic Approach (ICD-10-PCS; principal; 2025-04-05 19:00)
DX: K35.80 Unspecified acute appendicitis (principal); E87.1 Hypo-osmolality and hyponatremia; E11.65 Type 2 diabetes mellitus with hyperglycemia; D72.829 Elevated white blood cell count, unspecified; Z90.710 Acquired absence of both cervix and uterus; Z79.899 Other long term (current) drug therapy
CPT/HCPCS: 36415; 74177; 80048; 80053; 80076; 81001; 82948; 83036; 83690; 83735; 84703; 85025; 85610; 85730; 88304; 96374; 96375; 99285; A4344; A4450; G0378; J0690; J1171; J1815; J2003; J2250; J2270; J2405; J2543; J2704; J2710; J2795; J3010; J3490; J7030; Q9967; A4649; A4930; C1769; J1308